=== PATIENT | male | born 1975 | race Caucasian/White ===

== ENCOUNTER 2018-09-17 08:09 | Inpatient (IN) ==
[2018-09-17] MEDS ORDERED: Morphine Inj 4 MG/ML Vial ONE (08:13)
[2018-09-17] MEDS ORDERED: Midazolam Inj 5 MG/ML 1 ML Vial ONE (08:20)
[2018-09-17] MEDS ORDERED: HYDROmorphone PF Inj 1 MG/ML Ampul ONE (08:21)
[2018-09-17 08:45] LABS: Baso # (Auto) 0.1 th/mm3 (0.0-0.2); Baso % (Auto) 0.9 % (0.0-2.0); Eos # (Auto) 0.3 th/mm3 (0.0-0.4); Eos % (Auto) 2.2 % (0.0-4.0); Hematocrit 30.4 % (39.0-51.0); Lymph # (Auto) 1.6 th/mm3 (1.0-4.8); Lymph % (Auto) 12.5 % (9.0-44.0); Mean Corpuscular HGB Conc 32.9 % (32.0-36.0); Mean Corpuscular Hemoglobin 25.7 pg (27.0-34.0); Mean Corpuscular Volume 78.1 fL (80.0-100.0); Mean Platelet Volume 7.2 fL (7.0-11.0); Mono # (Auto) 1.2 th/mm3 (0.0-0.9); Mono % (Auto) 9.2 % (0.0-8.0); Neut # (Auto) 9.8 th/mm3 (1.8-7.7); Neut % (Auto) 75.2 % (16.0-70.0); Platelet Count 634 th/mm3 (150-450); Red Blood Count 3.89 mil/mm3 (4.50-5.90); Red Cell Distribution Width 17.4 % (11.6-17.2)
--- NOTE | 2018-09-17 08:45 | XR ---
EXAM DATE: 09/17/2018 8:42 AM EST AGE/SEX: 89 years / Male INDICATIONS: Trauma due to fall. CLINICAL DATA: This is the patient's initial encounter. Patient reports that signs and symptoms have been present for 1 day and indicates a pain score of 9/10. MEDICAL/SURGICAL HISTORY: None. Abdominal aortic aneurysm repair. COMPARISON: No prior exams available for comparison. FINDINGS: Slightly comminuted impacted right femoral neck fracture. Remaining visualized osseous structures are intact. Soft tissues are grossly unremarkable. No radiopaque foreign bodies. CONCLUSION: 1. Right femoral neck fracture, as above. Electronically signed by: Duane Tomas MD 09/17/2018 8:44 AM EST
--- NOTE | 2018-09-17 08:47 | ED ---
HPI General Chief Complaint: Fall Stated Complaint: Fall/Trauma Source: patient Mode of arrival: wheelchair Limitations: physical limitation History of Present Illness HPI narrative: 43-year-old male came to the emergency room by private vehicle complains of right hip pain right ankle pain. Patient states that he fell off a roof two-story height this morning. Patient denies loss of consciousness. Patient denies any headache or neck pain. Patient denies any visual change. Patient denies any chest pain or shortness of breath. Patient denies abdominal pain. Patient denies any back pain. Patient complains severe sharp pain localized to right hip and right ankle. Patient denies any focal weakness or numbness of the extremity. Patient status post right knee surgery in April after falling off a roof. The surgery was done in [place]. Patient has history of anxiety on alprazolam. Patient states that he is allergic to Percocet. complaint: Reports fall Onset (ago): minute(s) Loss of Consciousness: no Location - Extremities: Right: hip and ankle Severity: severe Severity scale (1-10): 10 Context: Reports fall Associated symptoms: Reports denies other symptoms Related Data Allergies Allergy/AdvReac Type Severity Reaction Status Date / Time No Allergy Information Allergy Unverified 09/17/18 08:10 Available Review of Systems ROS: all other systems reviewed are negative PMFSH History History Provided By: Patient Surgical History Surgical History H/O knee surgery (Acute) Social History Social History Recent Travel in [facility] within the Last 8 Weeks: No Recent Out of Country Travel within the Last 8 Weeks: No Exam Narrative Exam Narrative: GENERAL: Well-nourished, well-developed patient. SKIN: Focused skin assessment warm/dry. HEAD: Normocephalic. EYES: No scleral icterus. No injection or drainage. Pupils 2 mm equal reactive. NECK: Supple, trachea midline. No JVD or lymphadenopathy. No tenderness on palpation of the neck. CARDIOVASCULAR: Regular rate and rhythm without murmurs, gallops, or rubs. RESPIRATORY: Breath sounds equal bilaterally. No accessory muscle use. GASTROINTESTINAL: Abdomen soft, non-tender, nondistended. MUSCULOSKELETAL: Patient has severe tenderness on palpation right hip joint. Unable to move the right hip joint secondary to pain. Patient has soft tissue swelling tenderness with deformity of the right ankle joint. Full range of motion of the toes. Good DP pulse. BACK: Nontender without obvious deformity. No CVA tenderness. Neurologic exam: Patient is awake and alert oriented x3. No obvious focal neurological deficit. Course Initial Documented Vital Signs Pulse Oximetry 100 09/17/18 08:42 Last Documented Vital Signs Pulse Rate 75 09/17/18 09:05 Respiratory Rate 16 09/17/18 09:05 Blood Pressure 141/77 H 09/17/18 09:05 Pulse Oximetry 95 09/17/18 09:05 Medical Decision Making MDM Narrative Medical decision making narrative: 43-year-old male with right hip injury and right ankle injury. Status fall form two-story height. Medical Screen Exam Complete: Yes Emergency Medical Condition: Yes Lab Data Lab results reviewed: Yes I reviewed the patient's lab results. Result diagrams: 09/17/18 08:14 Lab Results 09/17/18 09/17/18 09/17/18 Range/Units 08:14 08:14 08:14 WBC 13.0 H (4.0-11.0) th/mm3 RBC 3.89 L (4.50-5.90) mil/mm3 Hgb 10.0 L (13.0-17.0) gm/dL POC Hgb (Calc) 10.9 L (13.0-17.0) g/dL Hct 30.4 L (39.0-51.0) % POC Hct 32.0 L (39-51.0) % MCV 78.1 L (80.0-100.0) fL MCH 25.7 L (27.0-34.0) pg MCHC 32.9 (32.0-36.0) % RDW 17.4 H (11.6-17.2) % Plt Count 634 H (150-450) th/mm3 MPV 7.2 (7.0-11.0) fL Neut % (Auto) 75.2 H (16.0-70.0) % Lymph % (Auto) 12.5 (9.0-44.0) % [place] % (Auto) 9.2 H (0.0-8.0) % Eos % (Auto) 2.2 (0.0-4.0) % Baso % (Auto) 0.9 (0.0-2.0) % Neut # (Auto) 9.8 H (1.8-7.7) th/mm3 Lymph # (Auto) 1.6 (1.0-4.8) th/mm3 [place] # (Auto) 1.2 H (0.0-0.9) th/mm3 Eos # (Auto) 0.3 (0.0-0.4) th/mm3 Baso # (Auto) 0.1 (0.0-0.2) th/mm3 WBC Differential . Differential Comment Auto diff final PT 11.2 (9.8-11.6) sec INR 1.1 Ratio APTT 28.8 (23.4-31.7) sec POC Sodium 138 (137-144) mmol/L POC Potassium 3.6 (3.6-5.0) mmol/L POC Chloride 98 L (102-111) mmol/L POC BUN 7 (5-21) mg/dL POC Creatinine 0.9 (0.6-1.3) mg/dL POC Glucose 195 H (68-110) mg/dL Blood Type Blood Type Recheck 09/17/18 Range/Units 08:14 WBC (4.0-11.0) th/mm3 RBC (4.50-5.90) mil/mm3 Hgb (13.0-17.0) gm/dL POC Hgb (Calc) (13.0-17.0) g/dL Hct (39.0-51.0) % POC Hct (39-51.0) % MCV (80.0-100.0) fL MCH (27.0-34.0) pg MCHC (32.0-36.0) % RDW (11.6-17.2) % Plt Count (150-450) th/mm3 MPV (7.0-11.0) fL Neut % (Auto) (16.0-70.0) % Lymph % (Auto) (9.0-44.0) % [place] % (Auto) (0.0-8.0) % Eos % (Auto) (0.0-4.0) % Baso % (Auto) (0.0-2.0) % Neut # (Auto) (1.8-7.7) th/mm3 Lymph # (Auto) (1.0-4.8) th/mm3 [place] # (Auto) (0.0-0.9) th/mm3 Eos # (Auto) (0.0-0.4) th/mm3 Baso # (Auto) (0.0-0.2) th/mm3 WBC Differential Differential Comment PT (9.8-11.6) sec INR Ratio APTT (23.4-31.7) sec POC Sodium (137-144) mmol/L POC Potassium (3.6-5.0) mmol/L POC Chloride (102-111) mmol/L POC BUN (5-21) mg/dL POC Creatinine (0.6-1.3) mg/dL POC Glucose (68-110) mg/dL Blood Type O Positive Blood Type Recheck Required Imaging Data Attestation: I personally reviewed and interpreted this imaging study as follows : Radiologist's impression: Chest X-Ray 09/17/18 08:10 CONCLUSION: 1. Negative trauma chest. Hip X-Ray 09/17/18 08:10 CONCLUSION: 1. Right femoral neck fracture, as above. Abdomen/Pelvis CT 09/17/18 08:14 CONCLUSION: 1. Negative for solid organ injury. 2. Basicervical fracture right femoral neck 3. Minimally displaced right sacral fracture with degenerative changes at L3-4 4. Questionable minimal anterior wedging L4 without significant fracture Chest CT 09/17/18 08:14 CONCLUSION: 1. No acute traumatic CT abnormality in the chest. 2. 4 mm groundglass nodule in the superior segment of the right lower lobe. No routine follow-up is recommended for sub-6 mm nodules per 2017 Fleischner criteria. If patient is high-risk, CT examination may be performed at 12 months to document stability. Head CT 09/17/18 08:14 CONCLUSION: 1. No acute intracranial abnormality. . Discharge Plan Discharge Disposition Patient Disposition: ED Admit(ED Internal Use Only) Discharge Details Diagnosis: Fracture of femoral neck, right, Fracture dislocation of right ankle Physicians Team ED Provider: Nakul Nieto Primary Care Provider: Primary Care [place],No Status ED Status: In Room
[2018-09-17 08:54] LABS: Activated Partial Thrombo Time 28.8 sec (23.4-31.7); INR 1.1 Ratio; Prothrombin Time 11.2 sec (9.8-11.6)
--- NOTE | 2018-09-17 08:58 | CT ---
EXAM DATE: 09/17/2018 8:53 AM EST AGE/SEX: 89 years / Male INDICATIONS: Trauma alert, fall off roof. CLINICAL DATA: This is the patient's initial encounter. Patient reports that signs and symptoms have been present for 1 day and indicates a pain score of Nonresponsive. MEDICAL/SURGICAL HISTORY: Non-responsive. Non-responsive. RADIATION DOSE: 56.35 CTDI (mGy) COMPARISON: No prior exams available for comparison. TECHNIQUE: CT of the head without contrast. Using automated exposure control and adjustment of the mA and/or kV according to patient size, radiation dose was kept as low as reasonably achievable to ob tain optimal diagnostic quality images. DICOM format image data is available electronically for revi ew and comparison. FINDINGS: Cerebrum: The ventricles are normal for age. No evidence of midline shift, mass lesion, hemorrhage o r acute infarction. No extraaxial fluid collections are seen. Posterior Fossa: The cerebellum and brainstem are intact. The 4th ventricle is midline. The cerebe llopontine angle is unremarkable. Extracranial: The visualized portion of the orbits is intact. Minimal mucoperiosteal thickening in t he ethmoid sinuses and inferior left maxillary sinus. Skull: The calvaria is intact. No evidence of skull fracture. CONCLUSION: 1. No acute intracranial abnormality. . Electronically signed by: Duane Tomas MD 09/17/2018 8:57 AM EST
--- NOTE | 2018-09-17 09:02 | CT ---
EXAM DATE: 09/17/2018 8:53 AM EST AGE/SEX: 89 years / Male INDICATIONS: Trauma alert, fall off roof. CLINICAL DATA: This is the patient's initial encounter. Patient reports that signs and symptoms have been present for 1 day and indicates a pain score of Nonresponsive. MEDICAL/SURGICAL HISTORY: Non-responsive. Non-responsive. RADIATION DOSE: 6.64 CTDI (mGy) ; Combined studies COMPARISON: [facility], CHEST 1V SINGLE AP, 09/17/2018. . TECHNIQUE: Multiple contiguous axial images were obtained through the chest during bolus infusion of 97 ml Omnipaque 350 (iohexol) nonionic water-soluble contrast as a cumulative dose for multiple exa ms. Images were obtained in suspended respiration using multiple row detector helical technique. U sing automated exposure control and adjustment of the mA and/or kV according to patient size, radiati on dose was kept as low as reasonably achievable to obtain optimal diagnostic quality images. DICOM format image data is available electronically for review and comparison. FINDINGS: Lung: Minimal upper lobe paraseptal emphysema. 4 mm groundglass nodule in the superior segment of th e right lower lobe. Pleura: No effusion, significant pleural thickening or pneumothorax. Mediastinum: Heart is unremarkable without pericardial effusion.No evidence of mediastinal or hilar adenopathy. Osseous Structures: Osseous structures are intact without evidence for acute bony fracture. Soft Tissues: Soft tissues are unremarkable. No significant axillary adenopathy. Other: Visulaized upper abdomen is unremarkable. CONCLUSION: 1. No acute traumatic CT abnormality in the chest. 2. 4 mm groundglass nodule in the superior segment of the right lower lobe. No routine follow-up is recommended for sub-6 mm nodules per 2017 Fleischner criteria. If patient is high-risk, CT examinatio n may be performed at 12 months to document stability. Electronically signed by: Duane Tomas MD 09/17/2018 9:01 AM EST
--- NOTE | 2018-09-17 09:02 | XR ---
EXAM DATE: 09/17/2018 8:52 AM EST AGE/SEX: 89 years / Male INDICATIONS: Trauma due to fall. CLINICAL DATA: This is the patient's initial encounter. Patient reports that signs and symptoms have been present for 1 day and indicates a pain score of 9/10. MEDICAL/SURGICAL HISTORY: None. None. COMPARISON: No prior exams available for comparison. FINDINGS: A single AP view of the chest demonstrates the lungs to be symmetrically aerated without evidence of mass, infiltrate or effusion. The cardiomediastinal contours are unremarkable. Osseous structures a re intact. CONCLUSION: 1. Negative trauma chest. Electronically signed by: Duane Tomas MD 09/17/2018 9:01 AM EST
--- NOTE | 2018-09-17 09:05 | CT ---
EXAM DATE: 09/17/2018 8:54 AM EST AGE/SEX: 89 years / Male INDICATIONS: Trauma alert, fall off roof. CLINICAL DATA: This is the patient's initial encounter. Patient reports that signs and symptoms have been present for 1 day and indicates a pain score of Nonresponsive. MEDICAL/SURGICAL HISTORY: Non-responsive. Non-responsive. ORAL CONTRAST: No oral contrast ingested. RADIATION DOSE: 6.64 CTDI (mGy) ; Combined studies COMPARISON: No prior exams available for comparison. TECHNIQUE: Multiple contiguous axial images were obtained through the abdomen and pelvis following b olus infusion of 97 ml Omnipaque 350 (iohexol) nonionic water-soluble contrast as a cumulative dose for multiple exams. No oral contrast ingested. Using automated exposure control and adjustment of t he mA and/or kV according to patient size, radiation dose was kept as low as reasonably achievable to obtain optimal diagnostic quality images. DICOM format image data is available electronically for r eview and comparison. FINDINGS: Lower Lungs: The visualized lower lungs are clear. Liver: The liver has a homogeneous density without space-occupying lesion. There is no dilation of th e biliary tree. Spleen: Homogeneous density without enlargement. Pancreas: Unremarkable without mass or calcification. Kidneys: Normal in size and shape. No evidence of mass or hydronephrosis. Adrenal Glands: Unremarkable. Aorta: The aorta and proximal iliac vessels are grossly unremarkable without aneurysmal dilation. Bowel/Mesentery: The bowel loops are grossly unremarkable. The cecum and sigmoid colon have a normal configuration. Abdominal Wall: Intact. Retroperitoneum: No evidence of adenopathy in the retrocrural, para-aortic, or deep pelvic regions. Bladder: Contours are smooth. Reproductive Organs: No abnormal masses or calcifications seen. Inguinal: The inguinal region is unremarkable without evidence of adenopathy. Bony Structures: Basicervical right femoral neck fracture. Right sacral fracture degenerative change s L3-4; possible minimal anterior wedging of the L4 vertebral body. CONCLUSION: 1. Negative for solid organ injury. 2. Basicervical fracture right femoral neck 3. Minimally displaced right sacral fracture with degenerative changes at L3-4 4. Questionable minimal anterior wedging L4 without significant fracture Electronically signed by: Ifeanyi Grayson MD 09/17/2018 9:04 AM EST
--- NOTE | 2018-09-17 09:11 | XR ---
EXAM DATE: 09/17/2018 8:44 AM EST AGE/SEX: 89 years / Male INDICATIONS: Trauma due to fall. CLINICAL DATA: This is the patient's initial encounter. Patient reports that signs and symptoms have been present for 1 day and indicates a pain score of 9/10. MEDICAL/SURGICAL HISTORY: None. None. COMPARISON: [facility] [place], CT ANKLE RIGHT W/O CONTRAST, 09/17/2018. . FINDINGS: AP and lateral views of the right ankle demonstrate a comminuted distal tibial fracture involving the distal metaphysis and epiphysis. Multiple fracture lines extend into the tibiotalar joint. There is an oblique minimally displaced fracture of the distal fibula/lateral malleolus with medial angulation of the distal fragment. There is surrounding soft tissue swelling. No radiopaque foreign body is sasha ntified. CONCLUSION: Comminuted displaced fracture of the distal tibia metaphysis and epiphysis with extension into the ti biotalar joint. There is also an oblique minimally displaced fracture of the distal fibula. Electronically signed by: Santo Vragas MD 09/17/2018 9:10 AM EST
--- NOTE | 2018-09-17 09:33 | CT ---
EXAM DATE: 09/17/2018 9:01 AM EST AGE/SEX: 89 years / Male INDICATIONS: Trauma alert, fall off roof. CLINICAL DATA: This is the patient's initial encounter. Patient reports that signs and symptoms have been present for 1 day and indicates a pain score of Nonresponsive. MEDICAL/SURGICAL HISTORY: Non-responsive. Non-responsive. RADIATION DOSE: 19.98 CTDI (mGy) COMPARISON: No prior exams available for comparison. TECHNIQUE: Contiguous axial images were obtained using helical multirow detector technique. The vol umetric data was post-processed with multiplanar reconstruction in oblique axial, sagittal, and coron al planes. Using automated exposure control and adjustment of the mA and/or kV according to patient s ize, radiation dose was kept as low as reasonably achievable to obtain optimal diagnostic quality pam ges. DICOM format image data is available electronically for review and comparison. FINDINGS: There is normal spinal alignment. No fracture or dislocation is identified. There is no anterolisthes is or retrolisthesis. The atlantoaxial relationship is within normal limits and there is no preverteb ral soft tissue swelling. No large disc herniation is seen in the upper cervical spine. This processe s there is moderate to severe right facet arthrosis at T1-T2. Surrounding soft tissues demonstrate no acute abnormality. There are emphysematous changes at the lung apices. CONCLUSION: No acute cervical spine abnormality is identified. Electronically signed by: Santo Vargas MD 09/17/2018 9:31 AM EST
--- NOTE | 2018-09-17 09:52 | CT ---
EXAM DATE: 09/17/2018 9:03 AM EST AGE/SEX: 89 years / Male INDICATIONS: Trauma alert, fall off roof. CLINICAL DATA: This is the patient's initial encounter. Patient reports that signs and symptoms have been present for 1 day and indicates a pain score of Nonresponsive. MEDICAL/SURGICAL HISTORY: Non-responsive. Non-responsive. RADIATION DOSE: 4.64 CTDI (mGy) COMPARISON: No prior exams available for comparison. TECHNIQUE: Multiple contiguous axial images were acquired using a multirow detector CT scanner witho ut contrast. Multiplanar reconstruction was performed in the sagittal and coronal planes. Using aut omated exposure control and adjustment of the mA and/or kV according to patient size, radiation dose was kept as low as reasonably achievable to obtain optimal diagnostic quality images. DICOM format i mage data is available electronically for review and comparison. FINDINGS: There is a comminuted fracture of the distal tibial metaphysis and epiphysis with multiple fracture l deborah extending into the tibiotalar joint. There is articular depression at the distal tibia approxima tely 9 mm. There is an oblique minimally displaced fracture of the distal fibula with medial angulati on of the distal fragment. The talus and tarsal bones demonstrate no fracture. There is surrounding s ubcutaneous edema. No displaced tendon is identified. Distal Achilles tendon is not thickened. There is no radiopaque foreign body. CONCLUSION: 1. There is a comminuted displaced fracture of the distal tibia with extension into the tibiotalar j oint and articular depression. 2. Oblique displaced and angulated fracture of the distal fibula. Electronically signed by: Santo Vargas MD 09/17/2018 9:51 AM EST
[2018-09-17] MEDS: Sod Chloride 0.9% Inj 1,000 ML IV.CONT SCH ×2 (09:55→18:33)
--- NOTE | 2018-09-17 10:12 | XR ---
EXAM DATE: 09/17/2018 9:53 AM EST AGE/SEX: 89 years / Male INDICATIONS: Trauma due to fall. CLINICAL DATA: This is the patient's initial encounter. Patient reports that signs and symptoms have been present for 1 day and indicates a pain score of 9/10. MEDICAL/SURGICAL HISTORY: None. None. COMPARISON: No prior exams available for comparison. FINDINGS: AP and lateral views of the right knee demonstrate no acute fracture or dislocation. There are small tricompartmental osteophytes. A joint effusion is present. There is infrapatellar soft tissue swellin g. Small ossific densities are located in the infrapatellar region. There are changes in the distal f emur and proximal tibia related to prior ACL reconstruction with associated metallic density abutting the distal lateral femoral metaphysis. No concerning radiopaque foreign body is identified. CONCLUSION: 1. No acute fracture is identified. However, the ossific densities in the infrapatellar region are o f uncertain etiology but could be chronic given the prior ACL reconstruction. 2. Small joint effusion and infrapatellar soft tissue swelling. 3. Mild tricompartmental osteoarthritis. Electronically signed by: Santo Vargas MD 09/17/2018 10:10 AM EST
[2018-09-17] MEDS ORDERED: HYDROmorphone PF Inj 0.5 MG/0.5 ML Syringe IV.PUSH PRN (11:13)
[2018-09-17] MEDS: HYDROmorphone PF Inj 1 MG/ML Ampul IV.PUSH PRN ×3 (11:35→18:30)
--- NOTE | 2018-09-17 15:54 | P.HPCC ---
History of Present Illness Primary Care Physician: No Primary Care Physician History of Present Illness: 43-year-old male who fell from second story-during work, was worked up by the ER physician with a complete trauma CAT scan workup plain x-rays of the right hip and right ankle were obtained as well. They show a fractured right ankle and also a femoral neck fracture. Patient is hemodynamically normal neurologically intact he complains of pain at the site of his fractures. There will already has been a splint applied, capillary refill is good and patient has been neurovascularly intact according to report from the ER physician. Inpatient Certification: I certify that the inpatient services were ordered in accordance with Medicare regulations governing the order. This includes certification that hospital inpatient services are reasonable and necessary and in the case of services not specified as inpatient-only under 42 CFR 419.22(n), that they are appropriately provided as inpatient services in accordance to with the 2-midnight benchmark under 43 CFR 412.3(e) Estimated Total Length of Stay (Days): 5 Plans for Post Hospital Care: Home Review of Systems All other systems reviewed negative except as stated in HPI PMFSH - History History Provided By: Patient - Surgical History Surgical History: Surgical History (Last Reviewed 09/17/18 @ 14:13 by Tianna Steiner) H/O knee surgery - Tobacco History Second Hand Smoke Exposure: Yes Tobacco Use In Past 30 Days: Yes Smoking Status: Current every day smoker Tobacco Type: Cigarettes - Alcohol History How Often Do You Have a Drink Containing Alcohol: Never - Substance Use History Substance History: No History of Abuse - Travel History Recent Travel in the [place] Within the Last 8 Weeks: No Recent Travel Out of the Country Within the Last 8 Weeks: No - Immunization History Tetanus Immunization: <5 Years Medications and Allergies Active Medications: Active Medications Chlorhexidine Gluconate (Chlorhexidine 2% Cloth) 3 pack TOPICAL DAILY@0400 [facility] Stop: 09/23/18 03:59 Chlorhexidine Gluconate (Chlorhexidine 2% Cloth) 3 pack TOPICAL DAILY@0400 PRN PRN Reason: Extra cloth needed Stop: 09/23/18 03:59 Docusate Sodium (Colace) 100 mg PO BID [facility]ANE Hydromorphone HCl (Dilaudid Pf Inj) 1 mg IV.PUSH Q3HR PRN PRN Reason: PAIN SCALE 6 TO 10 Last Admin: 09/17/18 14:42 Dose: 1 mg Hydromorphone HCl (Dilaudid Pf Inj) 0.5 mg IV.PUSH Q3H PRN PRN Reason: PAIN SCALE 3 TO 5 Sodium Chloride (Ns Inj) 1,000 mls @ 125 mls/hr IV.CONT .Q8H [facility] Last Admin: 09/17/18 09:55 Dose: 125 mls/hr Lactated Ringer's (Lr 1000 Ml Inj) 1,000 mls @ 100 mls/hr IV.CONT .Q10H [facility] Last Admin: 09/17/18 11:45 Dose: 100 mls/hr Acetaminophen (Ofirmev Inj) 1,000 mg in 100 mls @ 400 mls/hr IV.SIG Q6H [facility] Stop: 09/18/18 06:14 Last Infusion: 09/17/18 11:53 Dose: Infused Ondansetron HCl (Zofran Inj) 4 mg IV.PUSH Q6H PRN PRN Reason: NAUSEA OR VOMITING Sodium Chloride (Ns Flush) 2 ml IV.FLUSH UNSCH PRN PRN Reason: FLUSH AFTER USING IV ACCESS Allergies Allergy/AdvReac Type Severity Reaction Status Date / Time acetaminophen [From Percocet] AdvReac Nausea/Vomi Verified 09/17/18 09:12 ting oxycodone [From Percocet] AdvReac Nausea/Vomi Verified 09/17/18 09:12 ting Home Medications Medication Instructions Recorded Confirmed Type No Known Home Medications 09/17/18 09/17/18 History Results - Labs CBC & Chem 7: 09/17/18 08:14 Labs: Short CBC 09/17/18 Range/Units 08:14 WBC 13.0 H (4.0-11.0) th/mm3 Hgb 10.0 L (13.0-17.0) gm/dL Hct 30.4 L (39.0-51.0) % Plt Count 634 H (150-450) th/mm3 - Imaging Impressions Ankle X-Ray 09/17/18 00:00 CONCLUSION: Comminuted displaced fracture of the distal tibia metaphysis and epiphysis with extension into the tibiotalar joint. There is also an oblique minimally displaced fracture of the distal fibula. Chest X-Ray 09/17/18 08:10 CONCLUSION: 1. Negative trauma chest. Hip X-Ray 09/17/18 08:10 CONCLUSION: 1. Right femoral neck fracture, as above. Abdomen/Pelvis CT 09/17/18 08:14 CONCLUSION: 1. Negative for solid organ injury. 2. Basicervical fracture right femoral neck 3. Minimally displaced right sacral fracture with degenerative changes at L3-4 4. Questionable minimal anterior wedging L4 without significant fracture Cervical Spine CT 09/17/18 08:14 CONCLUSION: No acute cervical spine abnormality is identified. Chest CT 09/17/18 08:14 CONCLUSION: 1. No acute traumatic CT abnormality in the chest. 2. 4 mm groundglass nodule in the superior segment of the right lower lobe. No routine follow-up is recommended for sub-6 mm nodules per 2017 Fleischner criteria. If patient is high-risk, CT examination may be performed at 12 months to document stability. Head CT 09/17/18 08:14 CONCLUSION: 1. No acute intracranial abnormality. . Ankle CT 09/17/18 08:39 CONCLUSION: 1. There is a comminuted displaced fracture of the distal tibia with extension into the tibiotalar joint and articular depression. 2. Oblique displaced and angulated fracture of the distal fibula. Knee X-Ray 09/17/18 09:17 CONCLUSION: 1. No acute fracture is identified. However, the ossific densities in the infrapatellar region are of uncertain etiology but could be chronic given the prior ACL reconstruction. 2. Small joint effusion and infrapatellar soft tissue swelling. 3. Mild tricompartmental osteoarthritis. Exam Vital signs: Vital Signs 09/17/18 08:42 09/17/18 09:04 09/17/18 09:05 Temperature Pulse Rate 82 75 Respiratory Rate 16 Blood Pressure 141/77 H Pulse Oximetry 100 95 09/17/18 09:07 09/17/18 11:49 Temperature 97.4 F L Pulse Rate 74 80 Respiratory Rate 16 20 Blood Pressure 141/77 H 153/89 H Pulse Oximetry 94 L 94 L Intake & Output 09/16/18 09/17/18 09/17/18 18:59 06:59 18:59 Intake Total 100 / 100 Balance 100 / 100 Weight 70.307 kg Intake: IV 100 / 100 Ofirmev Inj 1,000 mg In 100 ml 100 / 100 @ 400 mls/hr IV.SIG Q6H [facility] Rx# :[id number] - Constitutional no acute distress, thin, cooperative - Routine HEENT Exam Head: Present: normocephalic ENT: Present: mucous membranes dry, oropharynx clear - Routine Neck Exam Present: supple, full ROM, trachea midline - Routine Respiratory Exam Present: CTA bilaterally - Routine Cardiovascular Exam Present: RRR - Routine Abdominal Exam Present: soft, normoactive bowel sounds - Routine Extremities Exam Present: full ROM, pulses intact - Routine Neurological Exam Present: alert, oriented X3, normal tone, vision grossly intact, normal speech Caprini VTE Risk Assessment Caprini VTE Risk Assessment: Moderate/High Risk (score >= 2) VTE Pharmacological Exception Reason: High risk for bleeding (trauma) Caprini Risk Assessment Model: Point Value = 1 Point Value = 2 Point Value = 3 Point Value = 5 Age 41-60 Minor surgery BMI > 25 kg/m2 Swollen legs Varicose veins or History of unexplained or recurrent spontaneous Oral contraceptives or hormone replacement Sepsis (< 1 month) Serious lung disease, including pneumonia (< 1 month) Abnormal pulmonary function Acute myocardial infarction Congestive heart failure (< 1 month) History of inflammatory bowel disease Medical patient at bed rest Age 61-74 Arthroscopic surgery Major open surgery (> 45 min) Laparoscopic surgery (> 45 min) Malignancy Confined to bed (> 72 hours) Immobilizing plaster cast Central venous access Age >= 75 History of VTE Family history of VTE Factor V Leiden Prothrombin [id number] Lupus anticoagulant Anticardiolipin antibodies Elevated serum homocysteine Heparin-induced thrombocytopenia Other congenital or acquired thrombophilia Stroke (< 1 month) Elective arthroplasty Hip, pelvis, or leg fracture Acute spinal cord injury (< 1 month) Prophylaxis Regimen: Total Risk Factor Score Risk Level Prophylaxis Regimen 0-1 Low Early ambulation 2 Moderate Order ONE of the following: *Sequential Compression Device (SCD) *Heparin 5000 units SQ BID 3-4 Higher Order ONE of the following medications: *Heparin 5000 units SQ TID *Enoxaparin/Lovenox 40 mg SQ daily (WT < 150 kg, CrCl > 30 mL/min) *Enoxaparin/Lovenox 30 mg SQ daily (WT < 150 kg, CrCl > 10-29 mL/min) *Enoxaparin/Lovenox 30 mg SQ BID (WT < 150 kg, CrCl > 30 mL/min) AND/OR *Sequential Compression Device (SCD) 5 or more Highest Order ONE of the following medications: *Heparin 5000 units SQ TID (Preferred with Epidurals) *Enoxaparin/Lovenox 40 mg SQ daily (WT < 150 kg, CrCl > 30 mL/min) *Enoxaparin/Lovenox 30 mg SQ daily (WT < 150 kg, CrCl > 10-29 mL/min) *Enoxaparin/Lovenox 30 mg SQ BID (WT < 150 kg, CrCl > 30 mL/min) AND *Sequential Compression Device (SCD) Assessment and Plan - Assessment and Plan Plan: Right ankle fracture Femoral neck fracture Sacral fracture Admit patient to the trauma floor N.p.o. for possible surgical intervention Pain control start DVT prophylaxis postop
--- NOTE | 2018-09-17 19:57 | P.CONOP ---
[facility] Orthopedics Consult Note - [facility] Consult date: 09/17/18 Consult reason: fracture Chief complaint: Fracture right femoral neck. 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 He states that he found himself on the edge of the road roof in the process of falling and decided to jump to the ground which was 22 feet down. He had immediate pain and deformity to his right ankle and his right hip with severe pain associated with that. He was brought to [facility] taken to trauma workup by the name of Santo Figueroa. He was admitted to the trauma surgeon. Further workup included radiographic and CT evaluation of the right hip and the right ankle. Consultation is now requested with the undersigned. [facility] - History History Provided By: Patient - Surgical History Surgical History: Surgical History (Last Reviewed 09/17/18 @ 19:52 by Tera Arroyo MD) H/O knee surgery - Tobacco History Second Hand Smoke Exposure: Yes Tobacco Use In Past 30 Days: Yes Smoking Status: Current every day smoker Tobacco Type: Cigarettes - Alcohol History How Often Do You Have a Drink Containing Alcohol: Never - Substance Use History Substance History: No History of Abuse - Substance Use Type Marijuana Status: Active Route Used: Inhalation Frequency: daily Reason for Use: Calm Down - Travel History Recent Travel in the [place] Within the Last 8 Weeks: No Recent Travel Out of the Country Within the Last 8 Weeks: No - Immunization History Tetanus Immunization: <5 Years Hx Influenza Vaccine This Season: No Medications and Allergies Active Medications: Active Medications Chlorhexidine Gluconate (Chlorhexidine 2% Cloth) 3 pack TOPICAL DAILY@0400 [facility] Stop: 09/23/18 03:59 Chlorhexidine Gluconate (Chlorhexidine 2% Cloth) 3 pack TOPICAL DAILY@0400 PRN PRN Reason: Extra cloth needed Stop: 09/23/18 03:59 Docusate Sodium (Colace) 100 mg PO BID DANE Hydromorphone HCl (Dilaudid Pf Inj) 1 mg IV.PUSH Q3HR PRN PRN Reason: PAIN SCALE 6 TO 10 Last Admin: 09/17/18 18:30 Dose: 1 mg Hydromorphone HCl (Dilaudid Pf Inj) 0.5 mg IV.PUSH Q3H PRN PRN Reason: PAIN SCALE 3 TO 5 Sodium Chloride (Ns Inj) 1,000 mls @ 125 mls/hr IV.CONT .Q8H [facility] Last Admin: 09/17/18 18:33 Dose: 125 mls/hr Lactated Ringer's (Lr 1000 Ml Inj) 1,000 mls @ 100 mls/hr IV.CONT .Q10H [facility] Last Admin: 09/17/18 11:45 Dose: 100 mls/hr Acetaminophen (Ofirmev Inj) 1,000 mg in 100 mls @ 400 mls/hr IV.SIG Q6H [facility] Stop: 09/18/18 06:14 Last Admin: 09/17/18 18:31 Dose: 400 mls/hr Ondansetron HCl (Zofran Inj) 4 mg IV.PUSH Q6H PRN PRN Reason: NAUSEA OR VOMITING Sodium Chloride (Ns Flush) 2 ml IV.FLUSH UNSCH PRN PRN Reason: FLUSH AFTER USING IV ACCESS Allergies Allergy/AdvReac Type Severity Reaction Status Date / Time acetaminophen [From Percocet] AdvReac Nausea/Vomi Verified 09/17/18 09:12 ting oxycodone [From Percocet] AdvReac Nausea/Vomi Verified 09/17/18 09:12 ting Home Medications Medication Instructions Recorded Confirmed Type No Known Home Medications 09/17/18 09/17/18 History Exam Vital signs: Vital Signs 09/17/18 08:42 09/17/18 09:04 09/17/18 09:05 Temperature Pulse Rate 82 75 Respiratory Rate 16 Blood Pressure 141/77 H Pulse Oximetry 100 95 09/17/18 09:07 09/17/18 11:49 09/17/18 16:00 Temperature 97.4 F L 97.9 F Pulse Rate 74 80 70 Respiratory Rate 16 20 16 Blood Pressure 141/77 H 153/89 H 121/73 Pulse Oximetry 94 L 94 L 93 L Intake & Output 09/17/18 09/17/18 09/18/18 06:59 18:59 06:59 Intake Total 1100 / 1100 Output Total 900 / 900 900 / 900 Balance 200 / 200 -900 / -900 Weight 70.3 kg Intake: IV 1100 / 1100 NS Inj 1,000 ML @ 125 mls/hr IV 1000 / 1000 .CONT .Q8H [facility] Rx#:[id number] Ofirmev Inj 1,000 mg In 100 ml 100 / 100 @ 400 mls/hr IV.SIG Q6H [facility] Rx# :[id number] Oral 0 / 0 Output: Urine 900 / 900 900 / 900 Other: Date of Last Bowel Movement 09/17/18 # Bowel Movements 0 Weight On Admission 70.3 kg - Constitutional moderate distress - Routine HEENT Exam Head: Present: normocephalic, atraumatic Eye: Present: EOMI, PERRL ENT: Present: mucous membranes moist, mucous membranes dry - Routine Neck Exam Present: supple, full ROM - Additional findings Additional findings: Upper extremity examination is benign with full range of motion and neuro intact. Lower extremity examination shows normal exam left lower extremity with the exception of prior knee surgical intervention. Right lower extremity shows prior needing surgical intervention has deformity of the right hip with abduction external rotation. He has a splint in place for the ankle. His toes have good sensation and capillary refill. Skin is intact. Results - Labs Result Diagrams: 09/17/18 08:14 Labs: Laboratory Results - last 24 hr 09/17/18 09/17/18 09/17/18 08:14 08:14 08:14 WBC 13.0 H RBC 3.89 L Hgb 10.0 L POC Hgb (Calc) 10.9 L Hct 30.4 L POC Hct 32.0 L MCV 78.1 L MCH 25.7 L MCHC 32.9 RDW 17.4 H Plt Count 634 H MPV 7.2 Neut % (Auto) 75.2 H Lymph % (Auto) 12.5 Smith % (Auto) 9.2 H Eos % (Auto) 2.2 Baso % (Auto) 0.9 Neut # (Auto) 9.8 H Lymph # (Auto) 1.6 Smith # (Auto) 1.2 H Eos # (Auto) 0.3 Baso # (Auto) 0.1 WBC Differential . Differential Comment Auto diff final PT 11.2 INR 1.1 APTT 28.8 POC Sodium 138 POC Potassium 3.6 POC Chloride 98 L POC BUN 7 POC Creatinine 0.9 POC Glucose 195 H Nasal Screen MRSA (PCR) Blood Type Blood Type Recheck Antibody Screen 09/17/18 09/17/18 08:14 14:45 WBC RBC Hgb POC Hgb (Calc) Hct POC Hct MCV MCH MCHC RDW Plt Count MPV Neut % (Auto) Lymph % (Auto) Smith % (Auto) Eos % (Auto) Baso % (Auto) Neut # (Auto) Lymph # (Auto) Smith # (Auto) Eos # (Auto) Baso # (Auto) WBC Differential Differential Comment PT INR APTT POC Sodium POC Potassium POC Chloride POC BUN POC Creatinine POC Glucose Nasal Screen MRSA (PCR) Not detected Blood Type O Positive Blood Type Recheck Required Antibody Screen Negative - Diagnostic results Imaging: Impressions Ankle X-Ray 09/17/18 00:00 CONCLUSION: Comminuted displaced fracture of the distal tibia metaphysis and epiphysis with extension into the tibiotalar joint. There is also an oblique minimally displaced fracture of the distal fibula. Chest X-Ray 09/17/18 08:10 CONCLUSION: 1. Negative trauma chest. Hip X-Ray 09/17/18 08:10 CONCLUSION: 1. Right femoral neck fracture, as above. Abdomen/Pelvis CT 09/17/18 08:14 CONCLUSION: 1. Negative for solid organ injury. 2. Basicervical fracture right femoral neck 3. Minimally displaced right sacral fracture with degenerative changes at L3-4 4. Questionable minimal anterior wedging L4 without significant fracture Cervical Spine CT 09/17/18 08:14 CONCLUSION: No acute cervical spine abnormality is identified. Chest CT 09/17/18 08:14 CONCLUSION: 1. No acute traumatic CT abnormality in the chest. 2. 4 mm groundglass nodule in the superior segment of the right lower lobe. No routine follow-up is recommended for sub-6 mm nodules per 2017 Fleischner criteria. If patient is high-risk, CT examination may be performed at 12 months to document stability. Head CT 09/17/18 08:14 CONCLUSION: 1. No acute intracranial abnormality. . Ankle CT 09/17/18 08:39 CONCLUSION: 1. There is a comminuted displaced fracture of the distal tibia with extension into the tibiotalar joint and articular depression. 2. Oblique displaced and angulated fracture of the distal fibula. Knee X-Ray 09/17/18 09:17 CONCLUSION: 1. No acute fracture is identified. However, the ossific densities in the infrapatellar region are of uncertain etiology but could be chronic given the prior ACL reconstruction. 2. Small joint effusion and infrapatellar soft tissue swelling. 3. Mild tricompartmental osteoarthritis. Assessment and Plan - Assessment and Plan The assessment is comminuted displaced right femoral neck fracture and comminuted displaced intra-articular right tibial and fibula pilon fracture His conditions were discussed and the options of treatment were discussed. In regards to the right hip, the recommendation is to proceed with open reduction internal fixation with large cannulated screws. Inherent risk of surgical intervention discussed including the risk of infection nerve damage blood vessel damage anesthetic complications medical complications and unforeseen possible complications. Including discussion of the risk of avascular necrosis and possible need for secondary surgeries including the possibility of total hip arthroplasty. The risks and benefits and alternatives were thoroughly reviewed and he wished to press on surgical intervention regarding the right hip. Regards the right ankle this is also a very serious intra-articular significantly displaced fracture that will most likely have long-term sequela. He understands that the recommendation is surgical intervention we talked about 2 different possible surgical interventions one is with external fixator with follow-up surgical open reduction internal fixation and the other is open reduction internal fixation and/or combination of both of these. With this part of the surgical intervention there is inherent risk of infection nerve damage blood vessel damage since then, case medical complication of 15 possible complications the possibility for more surgeries in the future were discussed all of his questions were answered he was shipped to press on with surgery detailed informed consent was obtained. A mid-level provider my office nurse practitioner MARILIA may see this patient on a follow-up basis continue implement the plan of care.
[2018-09-17] MEDS ORDERED: Docusate Sodium 100 MG Capsule PO SCH (21:00)
[2018-09-17] MEDS ORDERED: Sugammadex Inj 200 MG/2 ML Vial IV.PUSH ONE (21:32)
[2018-09-17] MEDS ORDERED: ceFAZolin Inj 500 MG Vial ONE (21:40)
[2018-09-17] MEDS ORDERED: Post-op Orders (for Pharmacy) OTHER STA ×2 (21:56)
--- NOTE | 2018-09-17 22:08 | P.OP ---
- Preoperative Diagnosis (1) Fracture of femoral neck, right, closed (2) Fracture of right tibial plafond with involvement of fibula - Postoperative Diagnosis (1) Fracture of femoral neck, right (2) Fracture of right tibial plafond with involvement of fibula Date of procedure: 09/17/18 Procedure: 1) Right Femoral neck open reduction and internal fixation 2) Right ankle plafond fracture Open reduction and internal fixation Implants: Synthes stainless steel screws and plates Anesthesia: GETA Surgeon: Tera Arroyo MD Mechanical Applications Engineer: Jsoe Zee Estimated blood loss (mL): 200 Tourniquet time (min): 0 Operation and Findings: The patient was brought the operating room and placed under general anesthesia. The right lower extremity was prepped and draped in usual sterile fashion. IV antibiotics were given. Timeout was completed. The ankle was then deformed position. A provisional reduction was performed. The swelling was mild. The graduate assistant athletic trainer was used to perform multiple tasks during the operation he applied traction and various internal/external rotation at the same time maintained the alignment of the ankle. With traction and manipulation the fracture site improved. A small anterior incision was made taken down to the fascial layers and manipulation of the fracture site directly through the capsule was performed. The overall alignment was significantly improved.. The fracture was manipulated in both the AP and lateral planes into her satisfied with the overall alignment. We then proceeded with lateral based incisions and our first guide pin was placed and aligned well in both the AP and lateral plane 2 additional incisions were made in the lateral aspect and 2 additional guide pins were placed we measured drilled and countersunk the most inferior screw and long screw was placed and then 2 additional screws were placed overall alignment of the screws look very good overall limb of the bone looked very good irrigated out with copious amounts of irrigation closed absorbable sutures and karlie of the skin. Attention was drawn to the right ankle this was evaluated fluoroscopically. We evaluated the CT scan preoperatively. With direct manipulation the fracture site the fibula went into very good alignment and the main malalignment and intra-articular step-off was on the tibial plafond region. The swelling was found to be acceptable and decision was made to proceed with surgical intervention. A direct medial approach was made and the saphenous vein was protected we went down to the bone and stayed subperiosteal and that went through the fracture site to directly manipulate the fracture fragments into markedly improved position and evaluated fluoroscopically and then proceeded to fixate K wires first and then satisfied with overall K wire alignment then proceeded with our medial base plate placing the cortical screws first and then the small distal locking screws in the proximal locking screws. Some of the screws were long and we removed them and then used a glove parts cutter to cut them shorter and then reapplied the screws. We then took a final x-rays AP lateral and oblique views. We were very satisfied with the motion of the ankle and the reconstruction of the ankle mortise. We proceeded to irrigate out with copious amounts of irrigation and proceeded closed with absorbable sutures and karlie on the skin Xeroform applied sterile dressing applied splint applied the patient was awoken and returned to recovery room in stable condition. The assistant sales manager is advanced registered nurse practitioner. His skill set was medically necessary for the performance of the operation.
[2018-09-17] MEDS ORDERED: fentaNYL Citrate Inj 100 MCG/2 ML Ampul ONE ×2 (23:52→23:53)
[2018-09-18] MEDS ORDERED: *morphine SULFATE 10 MG/ML PERIprocedure ONLY ONE (00:50)
--- NOTE | 2018-09-18 00:55 | XR ---
EXAM DATE: 09/18/2018 12:52 AM EST AGE/SEX: 43 years / Male INDICATIONS: ORIF of the right ankle done in the operating room. CLINICAL DATA: This is the patient's initial encounter. Patient reports that signs and symptoms have been present for 1 day and indicates a pain score of Nonresponsive. MEDICAL/SURGICAL HISTORY: None. None. COMPARISON: No prior exams available for comparison. FINDINGS: 5 spot intraoperative fluoroscopic views of the right ankle demonstrate medial plate and screw fixati on hardware placement across the distal tibial fracture. There is soft tissue swelling at the lateral aspect of the ankle. CONCLUSION: Postoperative changes. Electronically signed by: Isiah Hair MD 09/18/2018 12:54 AM EST
[2018-09-18] MEDS ORDERED: HYDROmorphone PCA Inj 6 MG/30 ML PCA.VIAL PCA ONE (00:59)
[2018-09-18] MEDS ORDERED: HYDROmorphone PCA Inj 6 MG/30 ML PCA.VIAL PCA PRN (01:14)
[2018-09-18] MEDS ORDERED: Naloxone Inj 0.4 MG/ML Vial IV.PUSH PRN (01:14)
[2018-09-18] MEDS ORDERED: *HYDROmorphone PF Inj 1 MG/ML Ampul PERIprocedural Use ONLY ONE (01:23)
[2018-09-18] MEDS ORDERED: Chlorhexidine Gluconate 2% 1 Pack (2 Cloths) TOPICAL PRN (04:00)
[2018-09-18] MEDS ORDERED: Chlorhexidine Gluconate 2% 1 Pack (2 Cloths) TOPICAL SCH (04:00)
[2018-09-18 06:11] LABS: Baso % (Auto) 0.2 % (0.0-2.0); Hematocrit 24.5 % (39.0-51.0); Hemoglobin 8.2 gm/dL (13.0-17.0); Lymph # (Auto) 0.4 th/mm3 (1.0-4.8); Lymph % (Auto) 4.3 % (9.0-44.0); Mean Corpuscular HGB Conc 33.6 % (32.0-36.0); Mean Corpuscular Volume 77.3 fL (80.0-100.0); Mean Platelet Volume 7.2 fL (7.0-11.0); Mono # (Auto) 0.8 th/mm3 (0.0-0.9); Neut # (Auto) 8.4 th/mm3 (1.8-7.7); Neut % (Auto) 87.5 % (16.0-70.0); Platelet Count 357 th/mm3 (150-450); Red Blood Count 3.17 mil/mm3 (4.50-5.90); Red Cell Distribution Width 16.9 % (11.6-17.2); White Blood Count 9.6 th/mm3 (4.0-11.0)
[2018-09-18 06:29] LABS: Carbon Dioxide 28.7 meq/L (21.0-32.0); Potassium 4.4 meq/L (3.5-5.1)
[2018-09-18] MEDS: Methocarbamol 500 MG Tablet PO SCH ×3 (08:18→21:42)
--- NOTE | 2018-09-18 10:12 | XR ---
EXAM DATE: 09/18/2018 10:08 AM EST AGE/SEX: 43 years / Male INDICATIONS: Hip pinning, left. CLINICAL DATA: This is the patient's initial encounter. Patient reports that signs and symptoms have been present for 1 day and indicates a pain score of Nonresponsive. MEDICAL/SURGICAL HISTORY: None. None. [place] [facility] [place], 09/17/2018. . FINDINGS: Basicervical fracture through the right femoral neck has been openly reduced and stabilized with 3 sc rews. There is good apposition of the fracture fragments. CONCLUSION: Satisfactory appearance of the right hip status post pinning. Electronically signed by: Reji Marin MD 09/18/2018 10:10 AM EST
[2018-09-18] MEDS ORDERED: HYDROmorphone PF Inj 1 MG/ML Ampul IV.PUSH PRN (10:56)
[2018-09-18] MEDS: Senna/Docusate Sodium 8.6/50 MG Tablet PO SCH ×2 (11:13→21:42)
--- NOTE | 2018-09-18 11:34 | P.PN ---
Subjective Interval history: Reports postop pain but pain much better today. Reports that his pain is mostly in the sacrum Requesting to be back on oral narcotics and off MARINATOR Physical Exam Vital signs: Vital Signs 09/17/18 11:49 09/17/18 16:00 09/17/18 20:20 Temperature 97.4 F L 97.9 F 98 F Pulse Rate 80 70 74 Respiratory Rate 20 16 18 Blood Pressure 153/89 H 121/73 149/86 H Pulse Oximetry 94 L 93 L 94 L 09/17/18 20:52 09/18/18 00:38 09/18/18 00:45 Temperature 98.0 F Pulse Rate 79 78 Respiratory Rate 18 12 10 L Blood Pressure 156/84 H 162/88 H Pulse Oximetry 100 100 09/18/18 01:01 09/18/18 01:03 09/18/18 01:15 Temperature 98.1 F Pulse Rate 76 68 Respiratory Rate 10 L 15 10 L Blood Pressure 149/86 H 146/77 H Pulse Oximetry 100 97 09/18/18 01:30 09/18/18 01:31 09/18/18 02:01 Temperature Pulse Rate 73 Respiratory Rate 10 L 16 Blood Pressure 139/77 Pulse Oximetry 98 100 09/18/18 05:44 09/18/18 06:01 09/18/18 08:00 Temperature 97.9 F Pulse Rate 86 Respiratory Rate 17 17 12 Blood Pressure 130/62 Pulse Oximetry 100 Intake & Output 09/17/18 09/18/18 09/18/18 18:59 06:59 18:59 Intake Total 1200 / 1200 2000 / 2000 1000 / 1000 Output Total 900 / 900 1050 / 1050 Balance 300 / 300 950 / 950 1000 / 1000 Weight 70.3 kg Intake: IV 1200 / 1200 1000 / 1000 1000 / 1000 LR 1000 mL Inj 1,000 ML @ 100 1000 / 1000 1000 / 1000 mls/hr IV.CONT .Q10H DANE Rx#: [id number] NS Inj 1,000 ML @ 125 mls/hr IV 1000 / 1000 .CONT .Q8H DANE Rx#:[id number] Ofirmev Inj 1,000 mg In 100 ml 200 / 200 @ 400 mls/hr IV.SIG Q6H DANE Rx# :[id number] Oral 0 / 0 Anesthesia Amount 1000 / 1000 Output: Urine 900 / 900 900 / 900 Estimated Blood Loss 150 / 150 Other: Date of Last Bowel Movement 09/17/18 09/17/18 # Bowel Movements 0 Weight On Admission 70.3 kg Narrative: GENERAL: 43 year old well-nourished, well developed male lying in bed in no acute distress. SKIN: Warm and dry. HEAD: Normocephalic. CARDIOVASCULAR: Regular rate and rhythm. RESPIRATORY: No accessory muscle use. Lungs clear to auscultation bilaterally. GASTROINTESTINAL: Abdomen soft, non-tender, nondistended. + BS. MUSCULOSKELETAL: Extremities without cyanosis, or edema. RLE soft splint in place. MAEW, + perfused NEUROLOGICAL: Awake and alert. Normal speech. Results - Labs CBC & Chem 7: 09/18/18 04:45 09/18/18 04:45 Laboratory Results - last 24 hr 09/17/18 09/18/18 09/18/18 14:45 04:45 04:45 WBC 9.6 RBC 3.17 L Hgb 8.2 L Hct 24.5 L MCV 77.3 L MCH 26.0 L MCHC 33.6 RDW 16.9 Plt Count 357 D MPV 7.2 Neut % (Auto) 87.5 H Lymph % (Auto) 4.3 L [place] % (Auto) 8.0 Eos % (Auto) 0.0 Baso % (Auto) 0.2 Neut # (Auto) 8.4 H Lymph # (Auto) 0.4 L [place] # (Auto) 0.8 Eos # (Auto) 0.0 Baso # (Auto) 0.0 WBC Differential . Differential Comment Auto diff final Sodium 136 Potassium 4.4 Chloride 101 Carbon Dioxide 28.7 Anion Gap 6 BUN 8 Creatinine 1.07 Estimated GFR 75 L Random Glucose 167 H Calcium 8.0 L Nasal Screen MRSA (PCR) Not detected - Imaging Impressions Ankle X-Ray 09/18/18 00:00 CONCLUSION: Postoperative changes. Hip X-Ray 09/18/18 00:00 CONCLUSION: Satisfactory appearance of the right hip status post pinning. Assessment and Plan - Plan [place]: Fell off a two-story roof landing on his feet. No LOC. INJURIES: RIGHT femoral neck fx w/ dislocation RIGHT sacral fx RIGHT tib/fib fx PMHx: Tobacco use, right knee sx with post-op MRSA infection RIGHT femoral neck fx w/ dislocation, RIGHT sacral fx, RIGHT tib/fib fx Orthopedics consulted 09/17: Right femoral neck ORIF, Right ankle plafond fracture ORIF Pain control-transition to PO Bowel regimen OOB- PT and OT ordered NWB LLE Hgb down to 8.2 today Labs in AM Plan of care discussed with patient, and RN at bedside. Collaborating Trauma surgeon agrees with plan. Case management consulted to assist with discharge planning. Plan to discharge tomorrow if ambulating well with PT and pain controlled on oral medications. - Attending Attestation feeling better,not using the MARINATOR,c/o pain at the site of the sacral fx
[2018-09-18] MEDS: Gabapentin 300 MG Capsule PO SCH ×2 (12:27→17:39)
--- NOTE | 2018-09-18 14:54 | P.PNOP ---
Subjective Interval history: Patient c/o pain to the sacral region. Right hip and right ankle doing ok. Physical Exam Vital signs: Vital Signs 09/17/18 16:00 09/17/18 20:20 09/17/18 20:52 Temperature 97.9 F 98 F Pulse Rate 70 74 Respiratory Rate 16 18 18 Blood Pressure 121/73 149/86 H Pulse Oximetry 93 L 94 L 09/18/18 00:38 09/18/18 00:45 09/18/18 01:01 Temperature 98.0 F Pulse Rate 79 78 76 Respiratory Rate 12 10 L 10 L Blood Pressure 156/84 H 162/88 H 149/86 H Pulse Oximetry 100 100 100 09/18/18 01:03 09/18/18 01:15 09/18/18 01:30 Temperature 98.1 F Pulse Rate 68 73 Respiratory Rate 15 10 L 10 L Blood Pressure 146/77 H 139/77 Pulse Oximetry 97 98 09/18/18 01:31 09/18/18 02:01 09/18/18 05:44 Temperature Pulse Rate Respiratory Rate 16 17 Blood Pressure Pulse Oximetry 100 09/18/18 06:01 09/18/18 08:00 09/18/18 12:00 Temperature 97.9 F 98.0 F Pulse Rate 86 84 Respiratory Rate 17 12 15 Blood Pressure 130/62 140/76 Pulse Oximetry 100 97 Intake & Output 09/17/18 09/18/18 09/18/18 18:59 06:59 18:59 Intake Total 1200 / 1200 2000 / 2000 1000 / 1000 Output Total 900 / 900 1050 / 1050 Balance 300 / 300 950 / 950 1000 / 1000 Weight 70.3 kg Intake: IV 1200 / 1200 1000 / 1000 1000 / 1000 LR 1000 mL Inj 1,000 ML @ 100 1000 / 1000 1000 / 1000 mls/hr IV.CONT .Q10H DANE Rx#: [id number] NS Inj 1,000 ML @ 125 mls/hr IV 1000 / 1000 .CONT .Q8H DANE Rx#:[id number] Ofirmev Inj 1,000 mg In 100 ml 200 / 200 @ 400 mls/hr IV.SIG Q6H DANE Rx# :[id number] Oral 0 / 0 Anesthesia Amount 1000 / 1000 Output: Urine 900 / 900 900 / 900 Estimated Blood Loss 150 / 150 Other: Date of Last Bowel Movement 09/17/18 09/17/18 # Bowel Movements 0 Weight On Admission 70.3 kg Narrative: Right hip dressing C/D/I calves soft Right ankle splint in place Tenderness to the sacral region with direct palpation. Radiographically demonstrates minimally displaced sacral fx Results - Labs CBC & Chem 7: 09/18/18 04:45 09/18/18 04:45 Laboratory Results - last 24 hr 09/17/18 09/18/18 09/18/18 14:45 04:45 04:45 WBC 9.6 RBC 3.17 L Hgb 8.2 L Hct 24.5 L MCV 77.3 L MCH 26.0 L MCHC 33.6 RDW 16.9 Plt Count 357 D MPV 7.2 Neut % (Auto) 87.5 H Lymph % (Auto) 4.3 L [place] % (Auto) 8.0 Eos % (Auto) 0.0 Baso % (Auto) 0.2 Neut # (Auto) 8.4 H Lymph # (Auto) 0.4 L [place] # (Auto) 0.8 Eos # (Auto) 0.0 Baso # (Auto) 0.0 WBC Differential . Differential Comment Auto diff final Sodium 136 Potassium 4.4 Chloride 101 Carbon Dioxide 28.7 Anion Gap 6 BUN 8 Creatinine 1.07 Estimated GFR 75 L Random Glucose 167 H Calcium 8.0 L Nasal Screen MRSA (PCR) Not detected - Imaging Impressions Ankle X-Ray 09/18/18 00:00 CONCLUSION: Postoperative changes. Hip X-Ray 09/18/18 00:00 CONCLUSION: Satisfactory appearance of the right hip status post pinning. Assessment and Plan - Assessment and Plan POD 1# ORIF Right hip and ORIF Right Ankle Pain management Physical therapy - non weight bearing to RLE Conservative management for sacral fx D/C planning - anticipating Home Sun/Mon Monitor
[2018-09-18] MEDS ORDERED: Enoxaparin Inj 40 MG/0.4 ML Syringe SQ SCH (21:00)
[2018-09-19] MEDS: Enoxaparin Inj 30 MG/0.3 ML Syringe SQ SCH ×3 (00:01→22:40)
[2018-09-19] MEDS: Methocarbamol 500 MG Tablet PO SCH (06:14)
[2018-09-19 07:21] LABS: Hematocrit 22.8 % (39.0-51.0); Hemoglobin 7.8 gm/dL (13.0-17.0)
[2018-09-19] MEDS: Gabapentin 300 MG Capsule PO SCH (09:08)
[2018-09-19] MEDS: Senna/Docusate Sodium 8.6/50 MG Tablet PO SCH ×2 (09:08→21:35)
[2018-09-19 11:31] LABS: Hemoglobin A1c 5.9 % (4.3-6.0)
[2018-09-19] MEDS: Morphine Inj 4 MG/ML Vial IV.PUSH PRN ×4 (11:32→22:26)
[2018-09-19] MEDS: Ketorolac Inj 30 MG/ML (IVP) Vial IV.PUSH SCH ×3 (11:32→22:26)
--- NOTE | 2018-09-19 13:05 | P.PN ---
Subjective Interval history: Reports intense pain in sacrum, minimal right leg pain States he has a lot of difficulty with mobility Reports difficulty voiding, but has not required straight catheterization Physical Exam Vital signs: Vital Signs 09/18/18 15:50 09/18/18 16:00 09/18/18 19:50 Temperature 99.1 F 98 F Pulse Rate 86 86 Respiratory Rate 15 18 Blood Pressure 125/61 151/67 H Pulse Oximetry 97 95 98 09/18/18 22:18 09/19/18 00:05 09/19/18 04:00 Temperature 97.9 F 98 F Pulse Rate 83 81 Respiratory Rate 16 18 18 Blood Pressure 140/65 127/62 Pulse Oximetry 100 96 09/19/18 08:00 09/19/18 12:05 Temperature 97.8 F Pulse Rate 57 L Respiratory Rate 12 Blood Pressure 118/68 Pulse Oximetry 95 95 Intake & Output 09/18/18 09/19/18 09/19/18 18:59 06:59 18:59 Intake Total 3200 / 3200 240 / 240 Balance 3200 / 3200 240 / 240 Intake: IV 2600 / 2600 LR 1000 mL Inj 1,000 ML @ 100 1600 / 1600 mls/hr IV.CONT .Q10H DANE Rx#: [id number] Oral 600 / 600 240 / 240 Other: # Voids 3 2 2 Date of Last Bowel Movement 09/18/17 09/18/17 09/18/17 Narrative: GENERAL: 43 year old well-nourished, well developed male lying in bed in mild distress. SKIN: Warm and dry. HEAD: Normocephalic. CARDIOVASCULAR: Regular rate and rhythm. RESPIRATORY: No accessory muscle use. Lungs clear to auscultation bilaterally. GASTROINTESTINAL: Abdomen soft, non-tender, nondistended. + BS. MUSCULOSKELETAL: Extremities without cyanosis, or edema. RLE soft splint in place. MAEW, + perfused NEUROLOGICAL: Awake and alert. Normal speech. Results - Labs CBC & Chem 7: 09/19/18 06:40 09/18/18 04:45 Laboratory Results - last 24 hr 09/19/18 06:40 Hgb 7.8 L Hct 22.8 L Assessment and Plan - Plan [place]: Fell off a two-story roof landing on his feet. No LOC. INJURIES: RIGHT femoral neck fx w/ dislocation RIGHT sacral fx RIGHT tib/fib fx PMHx: Tobacco use, right knee sx with post-op MRSA infection RIGHT femoral neck fx w/ dislocation, RIGHT sacral fx, RIGHT tib/fib fx Orthopedics consulted 09/17: Right femoral neck ORIF, Right ankle plafond fracture ORIF Pain control-adjusted pain medications Bowel regimen OOB- PT and OT ordered NWB LLE Hgb stable at 7.8 Labs in AM Plan of care discussed with patient, and RN at bedside. Collaborating Trauma surgeon agrees with plan. Case management consulted to assist with discharge planning. Plan to discharge 1-2 days if ambulating well with PT and pain controlled on oral medications. - Attending Attestation c/o pain at sacrum, will adjust pain control,DVT prophylaxis
[2018-09-19] MEDS: Gabapentin 400 MG Capsule PO SCH ×2 (13:11→17:34)
--- NOTE | 2018-09-19 14:41 | P.PNOP ---
Subjective Interval history: Patient complains of coccyx pain His right hip and right ankle pain is reasonably controlled. Physical Exam Vital signs: Vital Signs 09/18/18 15:50 09/18/18 16:00 09/18/18 19:50 Temperature 99.1 F 98 F Pulse Rate 86 86 Respiratory Rate 15 18 Blood Pressure 125/61 151/67 H Pulse Oximetry 97 95 98 09/18/18 22:18 09/19/18 00:05 09/19/18 04:00 Temperature 97.9 F 98 F Pulse Rate 83 81 Respiratory Rate 16 18 18 Blood Pressure 140/65 127/62 Pulse Oximetry 100 96 09/19/18 08:00 09/19/18 12:00 09/19/18 12:05 Temperature 97.8 F 97.9 F Pulse Rate 57 L 70 Respiratory Rate 12 12 Blood Pressure 118/68 119/70 Pulse Oximetry 95 94 L 95 Intake & Output 09/18/18 09/19/18 09/19/18 18:59 06:59 18:59 Intake Total 3200 / 3200 240 / 240 Balance 3200 / 3200 240 / 240 Intake: IV 2600 / 2600 LR 1000 mL Inj 1,000 ML @ 100 1600 / 1600 mls/hr IV.CONT .Q10H DANE Rx#: [id number] Oral 600 / 600 240 / 240 Other: # Voids 3 2 2 Date of Last Bowel Movement 09/18/17 09/18/17 09/18/17 Narrative: The patient is in moderate distress pain coming from his sacral region. The bedside. The right hip dressing is in place. The right ankle dressing and splint are in place. His toes show intact motor sensory neurologic examination. Results - Labs CBC & Chem 7: 09/19/18 06:40 09/18/18 04:45 Laboratory Results - last 24 hr 09/18/18 09/19/18 04:45 06:40 Hgb 7.8 L Hct 22.8 L Hemoglobin A1c 5.9 - Imaging The previous CT scan is reviewed and the right hiral-sacrum does show significant fracture there may also be some fracture that crosses into the left side the left side overall the SI joint so that he should go to bear weight on the left lower extremity. Assessment and Plan - Ortho Post Op Day # 2 - Assessment and Plan POD 2# ORIF Right hip and ORIF Right Ankle Right sacral fracture Pain management Physical therapy - non weight bearing to RLE Conservative management for sacral fx D/C planning - anticipating Home Sun/Mon Monitor
[2018-09-20] MEDS: Ketorolac Inj 30 MG/ML (IVP) Vial IV.PUSH SCH ×4 (04:47→22:43)
[2018-09-20 05:31] LABS: Hematocrit 21.4 % (39.0-51.0)
[2018-09-20] MEDS ORDERED: Sodium Chlor 0.9% Inj 250 ML IV.SIG SCH (07:00)
[2018-09-20] MEDS: Senna/Docusate Sodium 8.6/50 MG Tablet PO SCH ×2 (08:08→21:25)
[2018-09-20] MEDS: Gabapentin 400 MG Capsule PO SCH ×3 (08:08→21:29)
[2018-09-20] MEDS: Enoxaparin Inj 30 MG/0.3 ML Syringe SQ SCH ×2 (13:50→22:43)
[2018-09-20] MEDS: Morphine Inj 4 MG/ML Vial IV.PUSH PRN ×3 (13:50→22:43)
--- NOTE | 2018-09-20 15:06 | P.PN ---
Subjective Interval history: Hgb 7.0 today, transfuse 1 PRBC Pain better controlled, ambulating more No BM yet Physical Exam Vital signs: Vital Signs 09/19/18 16:00 09/19/18 19:40 09/20/18 00:00 Temperature 98.0 F 97.7 F 97.7 F Pulse Rate 82 84 71 Respiratory Rate 12 18 18 Blood Pressure 127/60 141/71 H 117/61 Pulse Oximetry 94 L 95 95 09/20/18 04:45 09/20/18 08:00 09/20/18 10:15 Temperature 97.4 F L 97.2 F L 97.4 F L Pulse Rate 87 78 72 Respiratory Rate 18 18 18 Blood Pressure 159/82 H 118/61 118/70 Pulse Oximetry 98 96 97 09/20/18 10:19 09/20/18 10:41 09/20/18 12:00 Temperature 97.2 F L 97.3 F L 97.3 F L Pulse Rate 78 75 68 Respiratory Rate 18 Blood Pressure 118/61 115/65 112/67 Pulse Oximetry 97 97 Intake & Output 09/19/18 09/20/18 09/20/18 18:59 06:59 18:59 Intake Total 100 / 100 Balance 100 / 100 Weight 82.1 kg Intake: Oral 100 / 100 Other: # Voids 2 4 # Urine Diapers 2 Date of Last Bowel Movement 09/18/17 09/18/17 09/18/17 # Bowel Movements 0 Narrative: GENERAL: 43 year old well-nourished, well developed male lying in bed in [facility]. SKIN: Warm and dry. HEAD: Normocephalic. CARDIOVASCULAR: Regular rate and rhythm. RESPIRATORY: No accessory muscle use. Lungs clear to auscultation bilaterally. GASTROINTESTINAL: Abdomen soft, non-tender, nondistended. + BS. MUSCULOSKELETAL: Extremities without cyanosis, or edema. RLE soft splint in place. MAEW, + perfused NEUROLOGICAL: Awake and alert. Normal speech. Results - Labs CBC & Chem 7: 09/20/18 04:34 09/18/18 04:45 Laboratory Results - last 24 hr 09/20/18 09/20/18 04:34 07:41 Hgb 7.0 L Hct 21.4 L Blood Type O Positive Antibody Screen Negative MTS Gel Crossmatch See Detail Assessment and Plan - Plan [place]: Fell off a two-story roof landing on his feet. No LOC. INJURIES: RIGHT femoral neck fx w/ dislocation RIGHT sacral fx RIGHT tib/fib fx PMHx: Tobacco use, right knee sx with post-op MRSA infection RIGHT femoral neck fx w/ dislocation, RIGHT sacral fx, RIGHT tib/fib fx Orthopedics consulted 09/17: Right femoral neck ORIF, Right ankle plafond fracture ORIF Pain control Bowel regimen OOB- PT and OT ordered NWB LLE Hgb 7.0 today, transfuse 1 PRBC H&H in AM Pre-diabetes Hgb A1C 5.9 DM educator consulted Diet/lifestyle modifications Plan of care discussed with patient, and RN at bedside. Collaborating Trauma surgeon agrees with plan. Case management consulted to assist with discharge planning. Plan to discharge 1-2 days if ambulating well with PT and pain controlled on oral medications.
[2018-09-20 18:37] LABS: Hemoglobin 8.6 gm/dL (13.0-17.0)
--- NOTE | 2018-09-20 19:05 | P.PNOP ---
Subjective Interval history: Patient c/o coccyx pain. Right hip and right ankle pain is controlled. RN states patient will receive blood transfusion due to low hgb. Physical Exam Vital signs: Vital Signs 09/19/18 19:40 09/20/18 00:00 09/20/18 04:45 Temperature 97.7 F 97.7 F 97.4 F L Pulse Rate 84 71 87 Respiratory Rate 18 18 18 Blood Pressure 141/71 H 117/61 159/82 H Pulse Oximetry 95 95 98 09/20/18 08:00 09/20/18 10:15 09/20/18 10:19 Temperature 97.2 F L 97.4 F L 97.2 F L Pulse Rate 78 72 78 Respiratory Rate 18 18 18 Blood Pressure 118/61 118/70 118/61 Pulse Oximetry 96 97 97 09/20/18 10:41 09/20/18 12:00 09/20/18 16:00 Temperature 97.3 F L 97.3 F L 97.3 F L Pulse Rate 75 68 74 Respiratory Rate 18 18 Blood Pressure 115/65 112/67 111/60 Pulse Oximetry 97 98 Intake & Output 09/20/18 09/20/18 09/21/18 06:59 18:59 06:59 Intake Total 100 / 100 Balance 100 / 100 Weight 82.1 kg Intake: Oral 100 / 100 Other: # Voids 4 # Urine Diapers 2 Date of Last Bowel Movement 09/18/17 09/18/17 # Bowel Movements 0 Narrative: Right hip dressing C/D/I calves soft negative Homans NVI Right ankle splint and dressing C/D/I good movement of toes +sensation Coccyx tenderness with direct palpation skin intact Results - Labs CBC & Chem 7: 09/20/18 18:14 09/18/18 04:45 Laboratory Results - last 24 hr 09/20/18 09/20/18 09/20/18 04:34 07:41 18:14 Hgb 7.0 L 8.6 L Hct 21.4 L 25.0 L Blood Type O Positive Antibody Screen Negative MTS Gel Crossmatch See Detail Assessment and Plan - Assessment and Plan POD 3# ORIF Right hip and ORIF Right Ankle Right sacral fracture Pain management Medical management Physical therapy - non weight bearing to RLE Conservative management for sacral fx D/C planning - anticipating Home Mon Monitor
[2018-09-21] MEDS: Morphine Inj 4 MG/ML Vial IV.PUSH PRN ×3 (01:32→08:30)
[2018-09-21 02:31] VITALS: RESP 18
[2018-09-21] MEDS: Ketorolac Inj 30 MG/ML (IVP) Vial IV.PUSH SCH (05:09)
[2018-09-21] MEDS: Gabapentin 400 MG Capsule PO SCH (08:29)
[2018-09-21] MEDS: Senna/Docusate Sodium 8.6/50 MG Tablet PO SCH (08:30)
--- NOTE | 2018-09-21 11:12 | P.PN ---
Subjective Interval history: Hgb 8.6 today Patient still reports increased pain with sitting/transfers despite current medication regimen Cleared for DC per Ortho Physical Exam Vital signs: Vital Signs 09/20/18 12:00 09/20/18 16:00 09/20/18 20:00 Temperature 97.3 F L 97.3 F L 97.3 F L Pulse Rate 68 74 63 Respiratory Rate 18 18 17 Blood Pressure 112/67 111/60 126/64 Pulse Oximetry 97 98 97 09/21/18 00:00 09/21/18 08:00 09/21/18 10:43 Temperature 97.1 F L 97.2 F L Pulse Rate 67 68 Respiratory Rate 18 18 Blood Pressure 146/71 H 142/71 H Pulse Oximetry 97 97 96 Intake & Output 09/20/18 09/21/18 09/21/18 18:59 06:59 18:59 Weight 73.1 kg Other: # Voids 4 1 Date of Last Bowel Movement 09/18/17 09/18/17 09/17/18 # Bowel Movements 1 Narrative: GENERAL: 43 year old well-nourished, well developed male OOB in chair in mild distress. SKIN: Warm and dry. HEAD: Normocephalic. CARDIOVASCULAR: Regular rate and rhythm. RESPIRATORY: No accessory muscle use. Lungs clear to auscultation bilaterally. GASTROINTESTINAL: Abdomen soft, non-tender, nondistended. + BS. MUSCULOSKELETAL: Extremities without cyanosis, +1 RLE edema. RLE soft splint in place. MAEW, + perfused NEUROLOGICAL: Awake and alert. Normal speech. Results - Labs CBC & Chem 7: 09/20/18 18:14 09/18/18 04:45 Laboratory Results - last 24 hr 09/20/18 09/20/18 07:41 18:14 Hgb 8.6 L Hct 25.0 L Blood Type O Positive Antibody Screen Negative MTS Gel Crossmatch See Detail Assessment and Plan - Plan [place]: Fell off a two-story roof landing on his feet. No LOC. INJURIES: RIGHT femoral neck fx w/ dislocation RIGHT sacral fx RIGHT tib/fib fx PMHx: Tobacco use, right knee sx with post-op MRSA infection RIGHT femoral neck fx w/ dislocation, RIGHT sacral fx, RIGHT tib/fib fx Orthopedics consulted 09/17: Right femoral neck ORIF, Right ankle plafond fracture ORIF Pain control- Added Fentanyl patch for better pain control. DC Morphine IV Bowel regimen OOB- PT and OT ordered NWB RLE Hgb 8.6 today, S/P 1 PRBC transfusion yesterday Pre-diabetes Hgb A1C 5.9 DM educator consulted Diet/lifestyle modifications Plan of care discussed with patient, and RN at bedside. Collaborating Trauma surgeon agrees with plan. Case management consulted to assist with discharge planning. Plan to discharge tomorrow when pain better controlled on PO.
[2018-09-21] MEDS: Enoxaparin Inj 30 MG/0.3 ML Syringe SQ SCH (11:26)
--- NOTE | 2018-09-21 11:48 | P.DCO ---
- Physical Therapy Order: Evaluate and treat, Improve ambulation, Strength and gait training - Home Health Nursing Order: Nursing assessment with vital signs - Case Management Consult Case Management Consult-Home Health: Yes - Certification I have seen patient Lebron Joyce on 09/21/18. My clinical findings support the need for the requested home health care services because: Limited mobility due to disease progression, Limited ability to care for self I certify that my clinical findings support that this patient is homebound because: Post-op weakness
[2018-09-21 12:10] VITALS: BP 129/76; PULSE 71; TEMP 97.5; O2SAT 100
--- NOTE | 2018-09-21 12:15 | P.DS ---
Date of admission: 09/17/18 09:36 Primary care physician: No Primary Care Physician Brief History from admission: S/P Fall DS: Diagnosis - Discharge Diagnosis (1) Fracture of sacrum Status: Acute (2) Fracture of femoral neck, right, closed Status: Acute (3) Fracture of right tibial plafond with involvement of fibula Status: Acute DS: Medications - Discharge Medications Prescriptions: cyclobenzaprine 10 mg PO Q8HR #30 tab hydrocodone-acetaminophen 1 tab PO Q4H PRN #40 tab PRN Reason: Acute Pain Exception sennosides-docusate sodium [Senna Plus] 1 tab PO BID #30 tab DS: Summary Hospital Course: [place]: Fell off a two-story roof landing on his feet. No LOC. INJURIES: RIGHT femoral neck fx w/ dislocation RIGHT sacral fx RIGHT tib/fib fx PMHx: Tobacco use, right knee sx with post-op MRSA infection RIGHT femoral neck fx w/ dislocation, RIGHT sacral fx, RIGHT tib/fib fx Orthopedics consulted, F/U outpatient 09/17: Right femoral neck ORIF, Right ankle plafond fracture ORIF Pain control- Added Fentanyl patch for better pain control Bowel regimen OOB- PT and OT ordered NWB RLE Hgb 8.6 today, S/P 1 PRBC transfusion yesterday Pre-diabetes Hgb A1C 5.9 DM educator consulted Diet/lifestyle modifications Plan of care discussed with patient, and RN at bedside. Collaborating Trauma surgeon agrees with plan. Case management consulted to assist with discharge planning. Patient is requesting to be discharged today. Patient is clear from trauma surgery standpoint to safely discharge home with home health care. DME ordered. [employer] Prescription Drug Monitoring Database has been queried and verified prior to prescribing the controlled substance. Acute pain exception. This patient has normal, predicted, physiological, and time limited response to an adverse mechanical stimulus associated with surgery, trauma, or acute illness as described in my notes. There is a lack of alternative treatment options other than to include the prescribed narcotic treatment for this condition. -ISS score calculation- Head/Neck: 0 Face: 0 Chest: 0 Abdomen: 0 Extremities: 16 External: 0 Score = 16 - Time Spent with Patient Total time spent providing and/or coordinating discharge services: Greater than 30 minutes - Quality: VTE Deep Vein Thrombosis/Pulmonary Embolism Present on Admission: No Exam Vital signs: Vital Signs 09/20/18 12:00 09/20/18 16:00 09/20/18 20:00 Temperature 97.3 F L 97.3 F L 97.3 F L Pulse Rate 68 74 63 Respiratory Rate 18 18 17 Blood Pressure 112/67 111/60 126/64 Pulse Oximetry 97 98 97 09/21/18 00:00 09/21/18 08:00 09/21/18 10:43 Temperature 97.1 F L 97.2 F L Pulse Rate 67 68 Respiratory Rate 18 18 Blood Pressure 146/71 H 142/71 H Pulse Oximetry 97 97 96 Intake & Output 09/20/18 09/21/18 09/21/18 18:59 06:59 18:59 Weight 73.1 kg Other: # Voids 4 1 Date of Last Bowel Movement 09/18/17 09/18/17 09/17/18 # Bowel Movements 1 Narrative: GENERAL: 43 year old well-nourished, well developed male OOB in chair in mild distress. SKIN: Warm and dry. HEAD: Normocephalic. CARDIOVASCULAR: Regular rate and rhythm. RESPIRATORY: No accessory muscle use. Lungs clear to auscultation bilaterally. GASTROINTESTINAL: Abdomen soft, non-tender, nondistended. + BS. MUSCULOSKELETAL: Extremities without cyanosis, +1 RLE edema. RLE soft splint in place. MAEW, + perfused NEUROLOGICAL: Awake and alert. Normal speech. Results Procedures completed during hospitalization: 09/17: Right femoral neck ORIF, Right ankle plafond fracture ORIF Labs on day of discharge: Labs from last 24 hours 09/20/18 09/20/18 18:14 07:41 Hgb 8.6 L Hct 25.0 L Blood Type O Positive Antibody Screen Negative MTS Gel Crossmatch See Detail - Impressions ITS Impressions Chest X-Ray 09/17/18 08:10 CONCLUSION: 1. Negative trauma chest. Abdomen/Pelvis CT 09/17/18 08:14 CONCLUSION: 1. Negative for solid organ injury. 2. Basicervical fracture right femoral neck 3. Minimally displaced right sacral fracture with degenerative changes at L3-4 4. Questionable minimal anterior wedging L4 without significant fracture Cervical Spine CT 09/17/18 08:14 CONCLUSION: No acute cervical spine abnormality is identified. Chest CT 09/17/18 08:14 CONCLUSION: 1. No acute traumatic CT abnormality in the chest. 2. 4 mm groundglass nodule in the superior segment of the right lower lobe. No routine follow-up is recommended for sub-6 mm nodules per 2017 Fleischner criteria. If patient is high-risk, CT examination may be performed at 12 months to document stability. Head CT 09/17/18 08:14 CONCLUSION: 1. No acute intracranial abnormality. . Ankle CT 09/17/18 08:39 CONCLUSION: 1. There is a comminuted displaced fracture of the distal tibia with extension into the tibiotalar joint and articular depression. 2. Oblique displaced and angulated fracture of the distal fibula. Knee X-Ray 09/17/18 09:17 CONCLUSION: 1. No acute fracture is identified. However, the ossific densities in the infrapatellar region are of uncertain etiology but could be chronic given the prior ACL reconstruction. 2. Small joint effusion and infrapatellar soft tissue swelling. 3. Mild tricompartmental osteoarthritis. Ankle X-Ray 09/18/18 00:00 CONCLUSION: Postoperative changes. Hip X-Ray 09/18/18 00:00 CONCLUSION: Satisfactory appearance of the right hip status post pinning. Discharge Plan - Discharge Disposition Patient Disposition: W/Home Health Service - Discharge Condition Condition: Stable - Discharge Order Discharge Orders: ED Use Only Admit Order (Routine); Ordered 09/17/18 Ordered By: Nakul Nieto - Physicians Team Primary Care Provider: Primary Care Physici,No Attending Provider: Nisreen Kiran Other Providers: Tera Arroyo MD ; Ramos Lloyd MD ; Kush Neal MD ; [employer] ; Kye Sumner MD ; Sharon Mojica ARNP ; Joel Johnson MD ; Nisreen Kiran MD ; Franck Leon ARNP ; Maida Almaraz MD
--- NOTE | 2018-09-21 12:30 | P.PNOP ---
Subjective Interval history: He has ongoing sacrum pain. He states his hip and ankle are doing okay Physical Exam Vital signs: Vital Signs 09/20/18 16:00 09/20/18 20:00 09/21/18 00:00 Temperature 97.3 F L 97.3 F L 97.1 F L Pulse Rate 74 63 67 Respiratory Rate 18 17 18 Blood Pressure 111/60 126/64 146/71 H Pulse Oximetry 98 97 97 09/21/18 08:00 09/21/18 10:43 09/21/18 12:00 Temperature 97.2 F L 97.5 F L Pulse Rate 68 71 Respiratory Rate 18 18 Blood Pressure 142/71 H 129/76 Pulse Oximetry 97 96 100 Intake & Output 09/20/18 09/21/18 09/21/18 18:59 06:59 18:59 Weight 73.1 kg Other: # Voids 4 1 Date of Last Bowel Movement 09/18/17 09/18/17 09/17/18 # Bowel Movements 1 Narrative: Alert, oriented, appropriate His is at the bedside. Right ankle splint in place. Right hip dressing clean, dry, intact. Toes. Neurovascularly intact. Ongoing tenderness sacrum Results - Labs CBC & Chem 7: 09/20/18 18:14 09/18/18 04:45 Laboratory Results - last 24 hr 09/20/18 09/20/18 07:41 18:14 Hgb 8.6 L Hct 25.0 L Blood Type O Positive Antibody Screen Negative MTS Gel Crossmatch See Detail - Procedures 09/17: Right femoral neck ORIF, Right ankle plafond fracture ORIF Assessment and Plan - Assessment and Plan POD 3# ORIF Right hip and ORIF Right Ankle Right sacral fracture Pain management Medical management Physical therapy - non weight bearing to RLE Conservative management for sacral fx D/C planning - Recommend discharge home today
== END 2018-09-21 13:23 | disposition home health service (06) ==
LOC: NEPI 08:09 → NEDA 09:36 → N06 10:54
PROVIDERS: ADMIT Surgery Trauma Surgery; ATTEND Surgery Trauma Surgery
PROC: ORIFTIB (2018-09-17 21:46)